=== PATIENT | male | born 1980 | race Caucasian/White ===

== ENCOUNTER 2019-01-20 00:04 | Emergency (ER) | payer OTHER ==
[~2019-01-20] VITALS: Ht 177.8 cm; Wt 77.6 kg
--- NOTE | 2019-01-20 00:23 | NUR ---
BIBRA 89 C/O FEELING DEPRESSED AND ANXIOUS AFTER BAG WITH MEDICATION WAS STOLEN TODAY, DENIES SI OR HI. PT AOX4 RR EVEN AND UNLABORED. NO SOB NOTED. NO NVD AT THIS TIME. DR. FIELDS AT BEDSIDE FOR EVAL. PT PROVIDED UA.
[2019-01-20] MEDS ORDERED: QUETIAPINE FUMARATE 25 MG TABLET ONE (00:45)
--- NOTE | 2019-01-20 00:50 | NUR ---
PT OK TO DISCHARGE PER DR FIELDS. Patient discharged to home in stable condition. Written and verbal after care instructions given. Patient verbalizes understanding of instruction.Patient is awake and alert to self, day, and place. PT ambulatory with a steady gait
[2019-01-20] MEDS ORDERED: QUETIAPINE FUMARATE 25 MG TABLET PO SCH (01:00)
[2019-01-20 02:34] VITALS: BP 120/75
== END 2019-01-20 02:35 | disposition home or self-care (01) ==
LOC: ER 00:09
DX: F32.9 Major depressive disorder, single episode, unspecified (principal); F41.9 Anxiety disorder, unspecified; I10 Essential (primary) hypertension

== ENCOUNTER 2024-05-09 17:49 | Emergency (ER) | payer OTHER ==
[~2024-05-09] VITALS: Ht 177.8 cm; Wt 74.8 kg
[2024-05-09] MEDS ORDERED: IBUP-1953 PO (19:16)
[2024-05-09 19:23] VITALS: BP 132/72; TEMP 209.7; O2SAT 100
== END 2024-05-09 19:31 | disposition home or self-care (01) ==
LOC: ER 17:54
DX: S22.32XD Fracture of one rib, left side, subsequent encounter for fracture with routine healing (principal); I10 Essential (primary) hypertension; Z60.2 Problems related to living alone; Z88.1 Allergy status to other antibiotic agents; W22.8XXD Striking against or struck by other objects, subsequent encounter
CPT/HCPCS: 71100-TC

== ENCOUNTER 2024-09-07 00:21 | Emergency (ER) | payer OTHER ==
[~2024-09-07] VITALS: Ht 175.3 cm; Wt 81.6 kg
[~2024-09-07 00:21] MED LIST: IBUP-1953 PO
[2024-09-07] MEDS ORDERED: KETOROLAC TROMETHAMINE INJ 30 MG/ML VIAL ONE (01:07)
[2024-09-07] MEDS: KETOROLAC TROMETHAMINE INJ 30 MG/ML VIAL IV ONE (01:10)
[2024-09-07 01:26] LABS: BASOPHILS % (AUTO) 0.5 % (0.0-2.0); EOSINOPHILS # (AUTO) 0.1 K/uL (0.0-0.7); EOSINOPHILS % (AUTO) 1.6 % (0.0-6.0); HEMATOCRIT 39 % (39-51); HEMOGLOBIN 13.2 g/dL (13.5-17.5); LYMPHOCYTES # (AUTO) 1.4 K/uL (0.8-4.8); LYMPHOCYTES % (AUTO) 23.9 % (20.0-44.0); MEAN CORPUSCULAR HEMOGLOBIN 34 PG (26.0-33.0); MEAN CORPUSCULAR HGB CONC 34 g/dl (31.0-36.0); MEAN CORPUSCULAR VOLUME 101 fL (80-96); MONOCYTES # (AUTO) 0.5 K/uL (0.1-1.30); MONOCYTES % (AUTO) 7.9 % (2.0-12.0); NEUTROPHILS # (AUTO) 3.8 K/uL (1.8-8.9); NEUTROPHILS % (AUTO) 66.1 % (43.0-81.0); PLATELET COUNT (AUTO) 269 K/uL (150-450); RED BLOOD CELL COUNT(AUTO) 3.87 MIL/uL (4.5-6.0); RED CELL DISTRIBUTION WIDTH 12.4 % (11.5-15.0); WHITE BLOOD COUNT (AUTO) 5.8 K/uL (4.3-11.0)
[2024-09-07 01:34] LABS: CALCIUM, SERUM 8.9 mg/dL (8.5-10.1); CARBON DIOXIDE 31 mmol/L (21-32); CHLORIDE 103 mmol/L (98-107); CREATININE 0.7 mg/dL (0.6-1.3); GLUCOSE 96 mg/dL (74-106); POTASSIUM 3.6 mmol/L (3.5-5.1); SODIUM SERUM 139 mmol/L (136-145); UREA NITROGEN, BLOOD 6 mg/dL (7-18)
[2024-09-07 01:40] LABS: ALANINE AMINOTRANSFERASE 18 U/L (12-78); ALBUMIN 3.5 g/dL (3.4-5.0); ALCOHOL, BLOOD < 3 mg/dL (0-10); ALKALINE PHOSPHATASE 73 U/L (46-116); ASPARTATE AMINOTRANSFERASE 13 U/L (15-37); BILIRUBIN,TOTAL 0.3 mg/dL (0.2-1.0)
[2024-09-07 06:50] VITALS: BP 152/97; TEMP 98.1; O2SAT 98
== END 2024-09-07 06:50 | disposition home or self-care (01) ==
LOC: ER 00:22
DX: S09.8XXA Other specified injuries of head, initial encounter (principal); R42 Dizziness and giddiness; R51.9 Headache, unspecified; I10 Essential (primary) hypertension; Z88.8 Allergy status to other drugs, medicaments and biological substances; Z60.2 Problems related to living alone; X58.XXXA Exposure to other specified factors, initial encounter; Y93.89 Activity, other specified; Y92.89 Other specified places as the place of occurrence of the external cause; Y99.8 Other external cause status
CPT/HCPCS: 99285; 96374; 70450; 85025; 36415; 80053; 80320; J1885; G0480